=== PATIENT | male | born 1985 | race African-American/Black ===

== ENCOUNTER 2016-12-19 10:03 | Emergency (ER) | payer MEDICAID ==
[~2016-12-19] VITALS: Ht 182.9 cm; Wt 89.0 kg
[2016-12-19 13:41] VITALS: BP 112/78
== END 2016-12-19 13:43 | disposition home or self-care (01) ==
LOC: ER 11:03
DX: H61.21 Impacted cerumen, right ear (principal); J06.9 Acute upper respiratory infection, unspecified; F17.200 Nicotine dependence, unspecified, uncomplicated
CPT/HCPCS: 69209; 71010; 99283; Z7610

== ENCOUNTER 2017-04-24 04:23 | Emergency (ER) | payer MEDICAID ==
[~2017-04-24] VITALS: Ht 182.9 cm; Wt 97.0 kg
[2017-04-24 04:42] VITALS: BP 129/72
== END 2017-04-24 06:35 | disposition left against medical advice (07) ==
LOC: ER 04:23
DX: Z53.21 Procedure and treatment not carried out due to patient leaving prior to being seen by health care provider (principal)

== ENCOUNTER 2017-09-08 14:44 | Emergency (ER) | payer MEDICAID ==
[~2017-09-08] VITALS: Ht 182.9 cm; Wt 102.8 kg
[2017-09-08 15:43] VITALS: BP 128/71
[2017-09-08] MEDS ORDERED: LIDOCAINE 5% PATCH TOP SCH (17:00)
[2017-09-08] MEDS ORDERED: IBUPROFEN 600MG TABLET PO ONE (17:00)
== END 2017-09-08 17:41 | disposition home or self-care (01) ==
LOC: ER 14:44
DX: S16.1XXA Strain of muscle, fascia and tendon at neck level, initial encounter (principal); S29.012A Strain of muscle and tendon of back wall of thorax, initial encounter; F17.200 Nicotine dependence, unspecified, uncomplicated; F12.10 Cannabis abuse, uncomplicated; V43.52XA Car driver injured in collision with other type car in traffic accident, initial encounter; Y93.89 Activity, other specified; Y92.488 Other paved roadways as the place of occurrence of the external cause
CPT/HCPCS: 99283

== ENCOUNTER 2019-03-07 08:37 | Emergency (ER) | payer MEDICAID ==
[~2019-03-07] VITALS: Ht 182.9 cm; Wt 100.0 kg
[2019-03-07] MEDS ORDERED: IBUPROFEN 600MG TABLET PO STA (09:23)
[2019-03-07 09:35] VITALS: BP 128/75
== END 2019-03-07 09:37 | disposition home or self-care (01) ==
LOC: ER 08:37
DX: H10.9 Unspecified conjunctivitis (principal); F12.10 Cannabis abuse, uncomplicated
CPT/HCPCS: 99283

== ENCOUNTER 2021-09-30 01:05 | Emergency (ER) | payer MEDICAID ==
[~2021-09-30] VITALS: Ht 185.4 cm; Wt 99.0 kg
[2021-09-30 06:13] LABS: BASOPHILS % 0.5 % (0.0-2.0); HEMATOCRIT. 47.6 % (42.0-52.0); HEMOGLOBIN. 16.4 g/dL (14.0-18.0); LYMPHOCYTES % 22.4 % (20.0-50.0); MEAN CORPUSCULAR HEMOGLOBIN 32.6 pg (28.0-32.0); MEAN CORPUSCULAR VOLUME 94.6 fL (80.0-94.0); MEAN PLATELET VOLUME 9.1 fl (7.4-10.4); MONOCYTES % 7.1 % (2.0-8.0); PLATELET 241 x1000/uL (130-400); RED BLOOD CELL COUNT 5.03 mill/uL (4.7-6.1); RED CELL DISTRIBUTION WIDTH 13.3 % (11.6-14.6)
[2021-09-30 06:18] LABS: CHLORIDE 104 mEq/L (98-107)
[2021-09-30] MEDS ORDERED: PRED10TA MT (06:35)
[2021-09-30 06:45] VITALS: BP 132/74
== END 2021-09-30 06:45 | disposition home or self-care (01) ==
LOC: ER 01:05
DX: R09.89 Other specified symptoms and signs involving the circulatory and respiratory systems (principal); M54.2 Cervicalgia
CPT/HCPCS: 36415; 70360; 70490; 80053; 83605; 85025; 99285